=== PATIENT | female | born 1960 | race Caucasian/White ===

== ENCOUNTER → 2023-09-30 17:21 | Outpatient (REF) | payer OTHER, SELFPAY | LOC: PAVMRI 17:21 | PROVIDERS: ATTENDING PHYSICIAN Physician Assistant Surgical; FAMILY PHYSICIAN Family Medicine | DX: M72.2 Plantar fascial fibromatosis (principal); M79.672 Pain in left foot | CPT/HCPCS: 73718 ==

== ENCOUNTER 2024-11-10 06:11 | Outpatient (RCR) | payer OTHER, SELFPAY | END 2024-11-10 23:59 | disposition home or self-care (01) | LOC: RPT 06:11 | PROVIDERS: ATTENDING PHYSICIAN Physician Assistant Surgical; FAMILY PHYSICIAN Physician Assistant Medical | DX: M72.2 Plantar fascial fibromatosis (principal); Z73.6 Limitation of activities due to disability | CPT/HCPCS: 97110; 97161 ==